=== PATIENT | male | born 1985 | race African-American/Black ===

== ENCOUNTER 2017-12-20 23:03 | Emergency (ER) | payer SELFPAY ==
[~2017-12-20] VITALS: Wt 108.9 kg
[2017-12-21] MEDS ORDERED: MELOXICAM7.5 MG PO (00:15)
[2017-12-21] MEDS ORDERED: PENICILLIN-VK500 MG PO (00:15)
== END 2017-12-21 01:02 | disposition home or self-care (01) ==
LOC: ED 23:03
DX: K08.89 Other specified disorders of teeth and supporting structures (principal); F17.200 Nicotine dependence, unspecified, uncomplicated; Z91.040 Latex allergy status

== ENCOUNTER 2019-09-09 10:25 | Emergency (ER) | payer BC ==
[~2019-09-09 10:25] MED LIST: MELOXICAM7.5 MG PO; PENICILLIN-VK500 MG PO
[2019-09-09 10:55] LABS: BASO % 0.3 % (0.0-1.0); EOS % 0.5 % (1.0-4.0); HEMATOCRIT 44.2 % (42.0-52.0); HEMOGLOBIN 15.2 g/dl (14.0-18.0); LYMPH % 17.9 % (27.0-41.0); MEAN CELL VOLUME 84.7 fl (80.0-94.0); MEAN CORPUSCULAR HGB 29.1 pg (27.0-31.0); MEAN CORPUSCULAR HGB CONC 34.4 g/dl (33.0-37.0); MEAN PLATELET VOLUME 9.9 fl (9.6-12.3); MONO # 0.8 10*3/uL (0.1-1.0); MONO % 14.3 % (3.0-9.0); NEUT # 3.8 10*3/uL (2.3-7.9); NEUT % 66.7 % (47.0-73.0); PLATELET COUNT AUTOMATED 255 10*3/uL (130-400); RED BLOOD COUNT 5.22 10*6/uL (4.50-5.90); WHITE BLOOD COUNT 5.7 10*3/uL (4.8-10.8)
[2019-09-09 11:18] LABS: ALBUMIN 3.4 gm/dl (3.1-4.5); ALKALINE PHOSPHATASE 63 U/L (45-117); BUN 11 mg/dl (7-24); CHLORIDE 104 mmol/L (98-107); CREATININE 1.06 mg/dL (0.70-1.30); POTASSIUM 3.5 mmol/L (3.5-5.1); SGOT/AST 26 IU/L (3-35); SGPT/ALT 24 U/L (12-78); SODIUM 136 mmol/L (136-145)
== END 2019-09-09 13:54 | disposition home or self-care (01) ==
LOC: ED 10:25
PROVIDERS: Internal Medicine
DX: B34.9 Viral infection, unspecified (principal); Z91.040 Latex allergy status; Z88.8 Allergy status to other drugs, medicaments and biological substances; Z79.2 Long term (current) use of antibiotics